=== PATIENT | male | born 1995 | race Caucasian/White ===

== ENCOUNTER 2018-06-14 16:57 | Emergency (ER) | payer OTHER ==
[~2018-06-14] VITALS: Ht 172.7 cm; Wt 77.3 kg
[2018-06-14] MEDS ORDERED: LIDOCAINE 2% MDV 20 ML VIAL SC ONE (17:45)
[2018-06-14] MEDS ORDERED: DERMABOND TOPICAL SKIN ADHESIVE TOP ONE (18:00)
[2018-06-14 18:09] VITALS: BP 124/74
== END 2018-06-14 18:15 | disposition home or self-care (01) ==
LOC: M ED 16:57
DX: S61.217A Laceration without foreign body of left little finger without damage to nail, initial encounter (principal); W26.8XXA Contact with other sharp object(s), not elsewhere classified, initial encounter; Y92.018 Other place in single-family (private) house as the place of occurrence of the external cause; Z91.010 Allergy to peanuts

== ENCOUNTER 2018-06-19 07:01 | Emergency (ER) | payer OTHER ==
[~2018-06-19] VITALS: Ht 172.7 cm; Wt 67.2 kg
[2018-06-19 07:01] VITALS: BP 139/83
== END 2018-06-19 07:58 | disposition home or self-care (01) ==
LOC: M ED 07:33
DX: Z48.00 Encounter for change or removal of nonsurgical wound dressing (principal); Z91.010 Allergy to peanuts

== ENCOUNTER 2020-07-21 08:09 | Emergency (ER) | payer OTHER ==
[~2020-07-21] VITALS: Ht 175.3 cm; Wt 79.5 kg
[2020-07-21 10:15] VITALS: BP 130/78
[2020-07-22] MEDS ORDERED: NAPR-837 PO (12:34)
== END 2020-07-21 10:24 | disposition home or self-care (01) ==
LOC: M ED 08:09
DX: M76.50 Patellar tendinitis, unspecified knee (principal); Z91.010 Allergy to peanuts